=== PATIENT | male | born 1960 | race Caucasian/White ===

== ENCOUNTER 2017-09-10 15:46 | Inpatient (IN) | payer OTHER ==
[~2017-09-10] VITALS: Ht 180.3 cm; Wt 106.6 kg
--- NOTE | 2017-09-10 16:11 | ED UPPER/LOWER EXTREMITY COMPL ---
History of Present Illness General Chief Complaint: General Adult Stated Complaint: MEGHAN ROME FOR DVT Vital Signs & Intake/Output Vital Signs & Intake/Output Vital Signs Date Time Temp Pulse Resp B/P B/P Pulse O2 O2 Flow FiO2 Mean Ox Delivery Rate 09/10 1559 97.8 91 15 125/79 96 Room Air Room Air Allergies Coded Allergies: No Known Allergies (09/10/17) Triage Note: PT SENT TO ED BY DR. ROME (GI) FOR ?DIVERTICULITIS. PT HAS L SIDED ABD PAIN THAT RADIATES INTO BACK. DENIES FEVERS, CHILLS, NAUSEA, VOMITING OR DIARRHEA. HAS BEEN ON PO ANTIBIOTICS BUT HASN'T FEELING BETTER. Past History Travel History Traveled to [place] past 21 day No Medical History Cardiovascular: hypertension, hyperlipidemia Gastrointestinal: GERD Psychiatric: anxiety Psychosocial History What is your primary language Welsh Tobacco Use: Never used ETOH Use: occasional use Illicit Drug Use: denies illicit drug use Departure Departure Condition: Stable Referrals: Chambers Jacob MA (PCP/Family) Departure Forms: Customer Survey General Discharge Information
--- NOTE | 2017-09-10 16:24 | ED GI/GU/ABDOMINAL COMPLAINT ---
History of Present Illness General Chief Complaint: General Adult Stated Complaint: MEGHAN GODOY FOR DVT Source: patient Exam Limitations: no limitations Allergies Coded Allergies: No Known Allergies (09/10/17) Triage Note: PT SENT TO ED BY DR. GODOY (GI) FOR ?DIVERTICULITIS. PT HAS L SIDED ABD PAIN THAT RADIATES INTO BACK. DENIES FEVERS, CHILLS, NAUSEA, VOMITING OR DIARRHEA. HAS BEEN ON PO ANTIBIOTICS BUT HASN'T FEELING BETTER. Triage Nurses Notes Reviewed? yes Onset: Gradual Duration: getting worse Quality/Severity: sharpness, severe, stabbing Severity Numbers: 7 Radiation: no radiation HPI: Patient is a 56-year-old male with a past medical history of hypertension, GERD, anxiety and diverticulitis with a remote history of surgical resection who presents to emergency room with concerns of left lower quadrant abdominal pain where he called his condominium property manager Dr. Godoy on September 08 he was prescribed ciprofloxacin and Flagyl were patient has been compliant with medications however presents to emergency room with concerns of worsening localized left abdominal pain. Patient's last bowel movement was within last 24 hours no blood no melena noted, can tolerate by mouth with no change in symptoms that denies any fever or chest pain shortness of breath arm pain jaw pain (Emile Alexadnra) Vital Signs & Intake/Output Vital Signs & Intake/Output Vital Signs Date Time Temp Pulse Resp B/P B/P Pulse O2 O2 Flow FiO2 Mean Ox Delivery Rate 09/10 1911 97.9 79 18 143/87 97 Room Air 09/10 1756 97.2 82 18 148/70 97 Room Air 09/10 1559 97.8 91 15 125/79 96 Room Air Room Air (Niharika MA,Dylon Ibarra) Past History Travel History Traveled to [place] past 21 day No Medical History Any Pertinent Medical History? see below for history Cardiovascular: hypertension, hyperlipidemia Gastrointestinal: GERD Psychiatric: anxiety Surgical History Surgical History: colon resection Psychosocial History What is your primary language Egyptian Tobacco Use: Never used ETOH Use: occasional use Illicit Drug Use: denies illicit drug use Family History Hx Contributory? No (Emile Alexandra) Review of Systems Review of Systems Constitutional: Reports: no symptoms. EENTM: Reports: no symptoms. Respiratory: Reports: no symptoms. Cardiovascular: Reports: no symptoms. GI: Reports: see HPI, abdominal pain. Genitourinary: Reports: no symptoms. Musculoskeletal: Reports: no symptoms. Skin: Reports: no symptoms. Neurological/Psychological: Reports: no symptoms. Hematologic/Endocrine: Reports: no symptoms. Immunologic/Allergic: Reports: no symptoms. All Other Systems: Reviewed and Negative (Emile Alexandra) Physical Exam Physical Exam General Appearance: no apparent distress, comfortable Head: atraumatic Eyes: Bilateral: normal appearance. Ears, Nose, Throat, Mouth: moist mucous membrane Neck: normal inspection Respiratory: normal breath sounds, chest non-tender Cardiovascular: regular rate/rhythm Gastrointestinal: normal bowel sounds, soft, LEFT QUADRANT ABDOMINAL PAIN NO REBOUND TENDERNESS NO PERITONEAL PAIN Extremities: normal range of motion Core Measures ACS in differential dx? No Sepsis Present: No Sepsis Focused Exam Completed? No (Emile Alexandra) Progress Differential Diagnosis: AAA, AMI, appendicitis, biliary colic, bowel obstruction , colon cancer, cholecystitis, diverticulitis, esophageal varices, gastritis, hepatitis, hernia, hemorrhoids, ischemic bowel, inflamm bowel dis, orchitis, pancreatitis, prostatitis, peptic ulcer, PUD/GERD, perforated viscous, pyelonephritis, SBO, testicular torsion, ureterolithiasis, urinary retention, urethritis, UTI/pyelo Diagnostic Imaging: Viewed by Me: CT Scan. Radiology Impression: acute abnormality Initial ED EKG: normal intervals, normal p-waves, 81 BPM,NSR Comments: PATIENT: JIMMY MAHARAJ PRESENT AGE: 56 PATIENT ACCOUNT NO: [id number] : 58 LOCATION: [facility] ORDERING PHYSICIAN: Emile CHACON SERVICE DATE: 09/10/17 EXAM TYPE: CAT - CT ABD & PELVIS W IV CONTRAST EXAMINATION: CT ABDOMEN AND PELVIS WITH CONTRAST CLINICAL INFORMATION: Left lower quadrant pain. COMPARISON: None TECHNIQUE: Multidetector volumetric imaging was performed of the abdomen and pelvis following IV administration of 95 mL of Optiray 320 intravenous contrast. Sagittal and coronal reformatted images were obtained on the technologist's workstation. DLP: 753.02 mGy-cm FINDINGS: LUNG BASES: The visualized lung bases are unremarkable. LIVER, GALLBLADDER, AND BILIARY TREE: Diffuse low attenuation of liver parenchyma due to fatty change. There is a faint 7 mm hypodensity segment 8 right lobe of liver, axial image 128 (3). This is indeterminate on postcontrast study. No intrahepatic bile duct dilatation. The gallbladder is unremarkable with no evidence of radiopaque gallstones, gallbladder wall thickening, or obvious pericholecystic inflammatory changes. PANCREAS: Unremarkable. SPLEEN: Unremarkable. ADRENAL GLANDS: Unremarkable. KIDNEYS AND URETERS: Numerous parapelvic cysts in the left kidney. Small parapelvic cyst lower pole right kidney. There is no hydronephrosis. No renal or ureteral calculus. BLADDER: Unremarkable. GASTROINTESTINAL TRACT: There are numerous diverticula of left colon and descending colon. There are a few scattered diverticula right colon. At the proximal descending colon there is diverticulitis. There is focal inflammation in the pericolonic fat and asymmetric bowel wall thickening due to the diverticulitis. No perforation or abscess. No bowel obstruction. No free air. The appendix is normal. The small bowel loops are normal. Moderate to large-volume of stool throughout the colon. ABDOMINAL WALL: No significant hernia is appreciated. LYMPH NODES: Normal. VASCULAR: Unremarkable. PELVIC VISCERA: Prostate measures 5 cm transverse. OSSEOUS STRUCTURES: Degenerative spondylosis of spine with multilevel endplate spurring and facet joint arthrosis. IMPRESSION: 1. Diverticulitis of the descending colon. 2. Diffuse fatty change of liver. Indeterminate small hypodensity in the right lobe of liver. Statistically this is likely incidental finding. DICTATED BY: Leandro Garcia MD DATE/TIME DICTATED:09/10/171803 INSULATION MACHINE OPERATOR:DINO DATE/TIME TRANSCRIBED:09/10/171803 (Emile Alexandra) Plan of Care: Orders Procedure Date/time Status Clear Liquid Diet 09/11 B Active URINALYSIS 09/10 190 Active Misc Message 09/10 1854 Active ED Holding Orders 09/10 185 Active Admit to inpatient 09/10 185 Active Vital Signs 09/10 185 Active Code Status 09/10 185 Active Patient Data 09/10 1851 Active EKG 09/10 1834 Active Add-on Test (ER Only) 09/10 1638 Active LIPASE 09/10 1624 Complete LACTIC ACID 09/10 1624 Complete COMPREHENSIVE METABOLIC PANEL 09/10 1624 Complete CBC WITHOUT DIFFERENTIAL 09/10 1624 Complete AMYLASE 09/10 1624 Complete Current Medications Sig/Kenia Start time Last Medication Dose Stop Time Status Admin Metronidazole 500 MG ONCE ONE 09/10 1845 AC 09/10 (Flagyl) 09/10 1944 1908 N/A 1 UNIT (No Carrier) Sodium Chloride 1,000 ML ONCE ONE 09/10 1845 AC 09/10 (Normal Saline 0.9%) 09/11 0124 1908 Laboratory Tests 09/10/17 1635: Anion Gap 14, Estimated GFR > 60, BUN/Creatinine Ratio 18.8, Glucose 83, Lactic Acid 0.8, Calcium 9.2, Total Bilirubin 1.3, AST 27, ALT 44, Alkaline Phosphatase 58, Total Protein 6.7, Albumin 4.3, Globulin 2.4, Albumin/Globulin Ratio 1.8, Amylase 43, Lipase 85, CBC w Diff NO MAN DIFF REQ, RBC 4.64 L, MCV 88.4, MCH 29.7, MCHC 33.6, RDW 13.3, MPV 8.4, Gran % 69.8, Lymphocytes % 19.5 L, Monocytes % 8.1, Eosinophils % 1.9, Basophils % 0.7, Absolute Granulocytes 4.9, Absolute Lymphocytes 1.4, Absolute Monocytes 0.6, Absolute Eosinophils 0.1, Absolute Basophils 0.1 Patient on initial presentation was resting currently at bedside, patient was offered pain medication and only requested nonnarcotics due to patient having the possibility of driving home, patient was reevaluated on multiple occasions nontoxic-appearing afebrile CT scan was resulted showing uncomplicated diverticulitis with no perforation or abscess concerns I will discuss patient with gastroenterology discussed patient with Dr. Godoy who advised patient to be admitted for bowel rest and IV antibiotics due to failed outpatient treatment for no improvement of his symptoms with outpatient by mouth antibiotics, patient agrees with admission disposition plan, (Emile Alexandra) (Niharika MA,Dylon Ibarra) Departure Departure Disposition: STILL A PATIENT Condition: Stable Clinical Impression Primary Impression: Diverticulitis Referrals: Jacob Chambers MD (PCP/Family) Departure Forms: Customer Survey General Discharge Information Admission Note Spoke With: Geraldo Thomason MD Documentation of Exam: Documentation of any treatments & extenuating circumstances including Concerns Regarding Discharge (functional status, medication knowledge or non-compliance, living conditions, etc.) that warrant an admission rather than observation: [ Patient requires IV fluids and bowel rest gastroenterology consultation IV antibiotics and pain management patient has failed outpatient treatment with by mouth antibiotics] (Emile Alexandra) PA/CASHIER CLERK Co-Sign Statement Statement: ED Attending supervision documentation- [] I saw and evaluated the patient. I have also reviewed all the pertinent lab results and diagnostic results. I agree with the findings and the plan of care as documented in the PA's/CASHIER CLERK's documentation. [X] I have reviewed the ED Record and agree with the PA's/CASHIER CLERK's documentation. [] Additions or exceptions (if any) to the PAs/CASHIER CLERK's note and plan are summarized below: [] (Niharika MA,Dylon Ibarra)
[2017-09-10 16:49] LABS: ABSOLUTE BASOPHIL COUNT 0.1 /CUMM (0.0-0.2); ABSOLUTE EOSINOPHIL COUNT 0.1 /CUMM (0.0-0.7); ABSOLUTE GRANULOCYTE CT 4.9 /CUMM (1.4-6.5); ABSOLUTE LYMPH COUNT 1.4 /CUMM (1.2-3.4); ABSOLUTE MONOCYTE COUNT 0.6 /CUMM (0.10-0.60); BASOPHIL % 0.7 % (0.0-2.0); EOSINOPHIL % 1.9 % (0-5); GRANULOCYTE % 69.8 % (42.2-75.2); MEAN CORPUSCULAR HGB 29.7 PG (27.0-31.0); MEAN CORPUSCULAR HGB CONC 33.6 G/DL (33.0-37.0); MEAN CORPUSCULAR VOLUME 88.4 FL (80.0-94.0); MEAN PLATELET VOLUME 8.4 FL (7.4-10.4); PLATELET COUNT 192 /CUMM (130-400); RBC DISTRIBUTION WIDTH 13.3 % (11.5-14.5); RED BLOOD CELL CT 4.64 /CUMM (4.70-6.10)
--- NOTE | 2017-09-10 18:14 | CT SCAN REPORT ---
EXAMINATION: CT ABDOMEN AND PELVIS WITH CONTRAST CLINICAL INFORMATION: Left lower quadrant pain. COMPARISON: None TECHNIQUE: Multidetector volumetric imaging was performed of the abdomen and pelvis following IV administration of 95 mL of Optiray 320 intravenous contrast. Sagittal and coronal reformatted images were obtained on the technologist's workstation. DLP: 753.02 mGy-cm FINDINGS: LUNG BASES: The visualized lung bases are unremarkable. LIVER, GALLBLADDER, AND BILIARY TREE: Diffuse low attenuation of liver parenchyma due to fatty change. There is a faint 7 mm hypodensity segment 8 right lobe of liver, axial image 128 (3). This is indeterminate on postcontrast study. No intrahepatic bile duct dilatation. The gallbladder is unremarkable with no evidence of radiopaque gallstones, gallbladder wall thickening, or obvious pericholecystic inflammatory changes. PANCREAS: Unremarkable. SPLEEN: Unremarkable. ADRENAL GLANDS: Unremarkable. KIDNEYS AND URETERS: Numerous parapelvic cysts in the left kidney. Small parapelvic cyst lower pole right kidney. There is no hydronephrosis. No renal or ureteral calculus. BLADDER: Unremarkable. GASTROINTESTINAL TRACT: There are numerous diverticula of left colon and descending colon. There are a few scattered diverticula right colon. At the proximal descending colon there is diverticulitis. There is focal inflammation in the pericolonic fat and asymmetric bowel wall thickening due to the diverticulitis. No perforation or abscess. No bowel obstruction. No free air. The appendix is normal. The small bowel loops are normal. Moderate to large-volume of stool throughout the colon. ABDOMINAL WALL: No significant hernia is appreciated. LYMPH NODES: Normal. VASCULAR: Unremarkable. PELVIC VISCERA: Prostate measures 5 cm transverse. OSSEOUS STRUCTURES: Degenerative spondylosis of spine with multilevel endplate spurring and facet joint arthrosis. IMPRESSION: 1. Diverticulitis of the descending colon. 2. Diffuse fatty change of liver. Indeterminate small hypodensity in the right lobe of liver. Statistically this is likely incidental finding.
--- NOTE | 2017-09-10 19:11 | History & Physical ---
Dinah MA,Asia 09/10/17 1910: General Information and HPI MD Statement: I have seen and personally examined JIMMY MAHARAJ and documented this H&P. The patient is a 56 year old M who presented with a patient stated chief complaint of [abdominal pain]. Source of Information: patient Exam Limitations: no limitations History of Present Illness: Patient is 56-year-old male with past medical history significant for hypertension, GERD, anxiety, esophageal spasms, diverticulitis requiring surgical resection 20 years ago presented to [place] with left lower quadrant pain that started this Thursday (09/07/2017). He reports pain is constant for the last 3 days, now on & off - not associated with any nausea vomiting or diarrhea, fever. He called Dr. Godoy office who prescribed Cipro and Flagyl on thursday as outpatient despite which pain progressively got worse. His last bowel movement was this morning which was soft without any blood in it. He takes Metamucil daily and has 3 bowel movements per day Patient did have 2 episodes of diverticular disease last year. One episode required admission to hospital for special care and the other one resolved at home with oral antibiotics. His last screening colonoscopy was in October 2016 - significant for diverticulosis without any neoplasia. Past medical history Hypertension, GERD, anxiety Allergies No known drug allergies Surgeries Knee replacement, carpal tunnel syndrome, rotator cuff tear, noted is a current surgical resection 20 years ago, cardiac catheterization 10 years ago ( nonocclusive disease) Follows Dr. Godoy Allergies/Medications Allergies: Coded Allergies: No Known Allergies (09/10/17) Home Med list Aspirin (Ecotrin*) 81 MG TABLET.DR 1 TAB PO DAILY heart health (Reported) Ciprofloxacin HCl 750 MG TABLET 1 TAB PO BID DIVERTICULITIS Duloxetine HCl 30 MG CAPSULE.DR 1 CAP PO DAILY anxiety (Reported) Losartan (Cozaar) 100 MG TABLET 1 TAB PO DAILY high bloodpressure (Reported) Metronidazole (Flagyl) 500 MG TABLET 1 TAB PO Q6H DIVERTICULITIS Pantoprazole Sodium 40 MG TABLET.DR 1 TAB PO DAILY GERD (Reported) Simvastatin (Zocor*) 20 MG TABLET 1 TAB PO QPM cholesterol (Reported) Compliance With Home Meds: GOOD Past History Travel History Traveled to [place] past 21 day No Medical History Neurological: NONE EENT: NONE Cardiovascular: hypertension, hyperlipidemia Gastrointestinal: GERD Psychiatric: anxiety Surgical History Surgical History: colon resection, knee replacement, carpal tunnel syndrome, rotator cuff tear Past Family/Social History Psychosocial History Where do you live? Home Services at Home: None Smoking Status: Never Smoked ETOH Use: occasional use Illicit Drug Use: denies illicit drug use Functional Ability ADLs Independent: dressing, eating, toileting, bathing. Ambulation: independent IADLs Independent: shopping, housework, finances, food prep, telephone, transportation , medication admin. Review of Systems Review of Systems Constitutional: Reports: see HPI. Comments ROS negative except above Exam & Diagnostic Data Last 24 Hrs of Vital Signs/I&O Vital Signs Date Time Temp Pulse Resp B/P B/P Pulse O2 O2 Flow FiO2 Mean Ox Delivery Rate 09/10 1756 97.2 82 18 148/70 97 Room Air 09/10 1559 97.8 91 15 125/79 96 Room Air Room Air Intake & Output 09/10 1600 09/10 0800 09/10 0000 Intake Total Output Total Balance Patient 106.594 kg Weight Weight Reported by Patient Measurement Method Physical Exam General Appearance Alert, Oriented X3, Cooperative, No Acute Distress Skin No Rashes, No Breakdown Skin Temp/Moisture Exam: Warm/Dry HEENT Atraumatic, PERRLA, EOMI Neck Supple, No JVD Cardiovascular Normal S1, Normal S2, ?systolic murmur Lungs Clear to Auscultation, Normal Air Movement Abdomen Normal Bowel Sounds, tenderness in the left lower quadrant without any guarding., no palpable masses Neurological Normal Gait, Normal Speech, Strength at 5/5 X4 Ext, Normal Tone Extremities No Clubbing, No Cyanosis, No Edema Vascular Normal Pulses, Pulses Symmetrical Body Front and Back (Adult) 1) Pain Last 24 Hrs of Labs/Amrik: Laboratory Tests 09/10/17 1924: Lactic Acid Cancelled 09/10/17 1635: Anion Gap 14, Estimated GFR > 60, BUN/Creatinine Ratio 18.8, Glucose 83, Lactic Acid 0.8, Calcium 9.2, Total Bilirubin 1.3, AST 27, ALT 44, Alkaline Phosphatase 58, Total Protein 6.7, Albumin 4.3, Globulin 2.4, Albumin/Globulin Ratio 1.8, Amylase 43, Lipase 85, CBC w Diff NO MAN DIFF REQ, RBC 4.64 L, MCV 88.4, MCH 29.7, MCHC 33.6, RDW 13.3, MPV 8.4, Gran % 69.8, Lymphocytes % 19.5 L, Monocytes % 8.1, Eosinophils % 1.9, Basophils % 0.7, Absolute Granulocytes 4.9, Absolute Lymphocytes 1.4, Absolute Monocytes 0.6, Absolute Eosinophils 0.1, Absolute Basophils 0.1 Assessment/Plan Assessment: Patient is a 56-year-old male with significant history of diverticulitis requiring surgical resection 20 years ago followed by 2 episodes of diverticulitis last year presented with another episode of left lower quadrant pain started 3 days ago. He was started on Cipro and Flagyl as outpatient by Dr. Godoy despite which pain progressed requiring prompt referral to ER for further evaluation. He denies any nausea, vomiting, diarrhea, fever and had normal bowel movements. Vital signs at admission afebrile, heart rate 91, blood pressure 120/79 mmHg, on room air. Labs are unremarkable with normal white count and normal H&H 13/41, pending UA. Imaging studies CT abdomen and pelvis is significant for numerous diverticula in the left colon and descending colon with scattered air decline the right colon with diverticulitis of the proximal descending colon. It is also notable for focal inflammation in the pericolonic fat region and asymmetric bowel wall thickening. No evident perforation/free air. Screening Colonoscopy October 2016 is significant for diverticulosis without any evident polyps Problem list 1. Recurrent uncomplicated diverticulitis with significant diverticulosis 2. Hypertension 3. Hyperlipidemia 4. GERD 5. Anxiety Recurrent Uncomplicated diverticulitis Patient did have 2 episodes of diverticulitis last year. His pain progressed despite starting on oral antibiotics as outpatient. For now we will keep the patient nothing by mouth starting IV Cipro and IV Flagyl to cover gram negatives and anaerobes. IV fluids. Pain control with Tylenol, morphine. We will inform Dr. Godoy. Hypertension Continue home medication losartan 100 mg daily and baby aspirin Hyperlipidemia Continue simvastatin 20 mg daily GERD Continue pantoprazole 40 mg daily Anxiety Continue duloxetine 30 mg daily DVT prophylaxis Subcutaneous Lovenox CODE STATUS Full code As Ranked By This Provider Problem List: 1. Diverticulitis Core Measures/Misc (04/26) Acute Coronary Syndrome ACS Diagnosis: No Congestive Heart Failure Congestive Heart Failure Diagnosis No Cerebrovascular Accident CVA/TIA Diagnosis: No VTE (View Protocol) VTE Risk Factors Acute Medical Illness No Mechanical VTE Prophylaxis d/t N/A MechProphylax Ordered No VTE Pharm Prophylaxis d/t NA PharmProphylax ordered Sepsis (View protocol) Sepsis Present: No Resident Review Statement Resident Statement: examined this patient Other Findings: as above Paddy,Aarteramsey 09/11/17 0355: Attending MD Review Statement Attending Statement Attending MD Statement: examined this patient, discuss w/resident/PA/TOUCH UP EDGER, agreed w/resident/PA/TOUCH UP EDGER, reviewed EMR data (avail), reviewed images, amended to note Attending Assessment/Plan: CC: Sent by lamp shade joiner for diverticulitis PMH: HTN, ? CAD (30% block, no PCI), recurrent diverticulitis, S/P bowel resection approximately 20 years back Patient came to ER for persistent left-sided abdominal pain, sharp, 10/10, nonradiating, started 3 days back and progressively worsening. Denies any associated fever or chills. Patient was empirically started on antibiotics 3 days back(metronidazole and Cipro), patient did not notice any improvement in pain so he came to ER. Otherwise complete ROS unremarkable. Vitals: Afebrile, pulse 91, RR 15, blood pressure 125/79, saturating 96% on room air On exam: A O 3, cooperative, no acute distress, neck supple, JVD normal, no lymphadenopathy, mucosa moist, no focal neurological deficit, no dependent edema , no obvious skin rashes or inflammation CVS: S1-S2, RRR. RS: Clear to auscultate bilaterally. Abdomen: Soft, tenderness left lower quadrant, no guarding or rigidity, ND, bowel sounds present. Labs: WBC 7.0, hemoglobin 13.8, hematocrit 41.0, platelets 192, neutrophils 69%, BMP, LFT unremarkable lipase 85 CT abdomen and pelvis with IV contrast 1. Diverticulitis of the descending colon. 2. Diffuse fatty change of liver. Indeterminate small hypodensity in the right lobe of liver. Statistically this is likely incidental finding. Assessment and plan 56-year-old male with a history of recurrent diverticulitis, requiring resection of small portion of bowel and 20 years back for complication for diverticulitis, and lipids are so diverticulitis during last year, presented to ER for left lower quadrant pain similar to his diverticulitis pain since last 3 days, progressively worsening. He was started on outpatient antibiotics, was not getting any better. He has tenderness left lower quadrant but no guarding or rigidity. CT scan does not show any development of abscess. Given his recurrent diverticulitis episodes and failed outpatient treatment he would benefit admission for IV antibiotics and bowel rest. Keyboard Specialist was informed from ER + Acute uncomplicated diverticulitis failed outpatient treatment + History of HTN - Admit to general medicine - Continue gentle hydration - Nothing by mouth except medications - Adequate pain control - Continue IV metronidazole and ceftriaxone - Trend one more level of lactate - Continue home medications - DVT prophylaxis - Inform lamp shade joiner about patient being in hospital
[2017-09-10] MEDS ORDERED: COZAAR100 M1 PO (20:29)
[2017-09-10] MEDS ORDERED: DULOXETINE HCL30 MG PO (20:30)
[2017-09-10] MEDS ORDERED: ASPIRIN EC81 M1 PO (20:30)
[2017-09-10] MEDS ORDERED: ZOCOR20 M1 PO (20:30)
[2017-09-10] MEDS ORDERED: PANTOPRAZOLE SO40 M1 PO (20:30)
[2017-09-10 21:28] VITALS: BP 140/80
--- NOTE | 2017-09-11 03:56 | Admission Certification ---
Admission Certification Certification Statement - As attending physician, I certify that at the time of - admission, based on clinical presentation, severity of - symptoms, need for further diagnostic testing and - therapeutic interventions, and risk of adverse outcomes - without in-hospital treatment, in my clinical assessment, - this patient requires an acute hospital stay for a minimum - of two nights or longer. I have also considered psychsocial - factors such as support system, advanced age, financial - issues, cognitive issues, and failed out-patient treatments, - past re-admission history, safety of patient, and lack of - compliance as applicable. Specific rationale supporting this admission is: Acute diverticulitis failed outpatient treatment
[2017-09-11 05:55] VITALS: BP 140/80
[2017-09-11 09:14] LABS: ABSOLUTE BASOPHIL COUNT 0 /CUMM (0.0-0.2); ABSOLUTE EOSINOPHIL COUNT 0.2 /CUMM (0.0-0.7); ABSOLUTE GRANULOCYTE CT 2.6 /CUMM (1.4-6.5); ABSOLUTE MONOCYTE COUNT 0.4 /CUMM (0.10-0.60); BASOPHIL % 0.4 % (0.0-2.0); EOSINOPHIL % 4.7 % (0-5); GRANULOCYTE % 62.5 % (42.2-75.2); HEMATOCRIT 38.9 % (42-52); MEAN CORPUSCULAR HGB 30.1 PG (27.0-31.0); MEAN CORPUSCULAR HGB CONC 34.3 G/DL (33.0-37.0); MEAN CORPUSCULAR VOLUME 87.7 FL (80.0-94.0); MEAN PLATELET VOLUME 9.4 FL (7.4-10.4); PLATELET COUNT 156 /CUMM (130-400); RBC DISTRIBUTION WIDTH 13.2 % (11.5-14.5); RED BLOOD CELL CT 4.43 /CUMM (4.70-6.10); WHITE BLOOD CELL COUNT 4.1 /CUMM (4.8-10.8)
--- NOTE | 2017-09-11 10:27 | PN- Housestaff ---
Lorri MA,Katy 09/11/17 1027: Subjective Follow-up For: diverticulitis Subjective: patient still has left lower ab pain. no blood in stools, no diarrhea or constipation. no fever or chills. no chest pain or sob. Review of Systems Constitutional: Reports: no symptoms. Cardiovascular: Reports: no symptoms. Respiratory: Reports: no symptoms. Gastrointestinal: Reports: abdominal pain. Genitourinary: Reports: no symptoms. Musculoskeletal: Reports: no symptoms. Neurological/Psychological: Reports: no symptoms. Objective Last 24 Hrs of Vital Signs/I&O Vital Signs Date Time Temp Pulse Resp B/P B/P Pulse O2 O2 Flow FiO2 Mean Ox Delivery Rate 09/11 1405 97.9 94 20 140/90 93 Room Air 09/11 0555 98.2 98 20 140/80 94 09/10 2128 98.0 87 18 140/80 96 Room Air 09/10 2015 97.1 80 18 124/68 94 Room Air 09/10 1911 97.9 79 18 143/87 97 Room Air Intake & Output 09/11 1600 09/11 0800 09/11 0000 Intake Total 750 600 415 Output Total 350 Balance 400 600 415 Intake, IV 400 600 415 Intake, Oral 350 0 Output, Urine 350 Patient 235 lb Weight Weight Reported by Patient Measurement Method Physical Exam General Appearance: Alert, Oriented X3, Cooperative, No Acute Distress Cardiovascular: Regular Rate, Normal S1, Normal S2, No Murmurs Lungs: Clear to Auscultation, Normal Air Movement Abdomen: Normal Bowel Sounds, Soft, No Hepatospenomegaly, No Masses, left side tenderness Neurological: Normal Speech Current Medications: Current Medications Sig/Kenia Start time Last Medication Dose Route Stop Time Status Admin Acetaminophen 650 MG Q6P PRN 09/10 2100 AC PO Aspirin Buffered 81 MG DAILY 09/11 1000 AC 09/11 PO 0916 Atorvastatin Calcium 10 MG 1700 09/11 1700 AC 09/11 PO 1813 Ceftriaxone Sodium 1,000 MG Q24H 09/11 1900 AC 09/11 IV 1818 Ceftriaxone Sodium 0 .STK-MED ONE 09/10 185 DC .ROUTE Ceftriaxone Sodium 1,000 MG ONCE ONE 09/10 1845 DC 09/10 IV 09/10 1846 1908 Duloxetine HCl 30 MG DAILY 09/11 1000 AC 09/11 PO 0916 Enoxaparin Sodium 40 MG DAILY 09/10 2026 AC SC Losartan Potassium 100 MG DAILY 09/11 1000 AC 09/11 PO 0922 Metronidazole 500 MG IQ8 09/11 0800 AC 09/11 N/A 1 UNIT IV 1813 Metronidazole 500 MG ONCE ONE 09/10 184 DC 09/10 N/A 1 UNIT IV 09/10 194 190 Morphine Sulfate 2 MG Q4P PRN 09/10 2100 AC 09/11 IV 0620 Morphine Sulfate 0 .STK-MED ONE 09/10 1854 DC .ROUTE Morphine Sulfate 4 MG ONCE ONE 09/10 184 DC 09/10 IV 09/10 184 190 Omeprazole 40 MG DAILY AC 09/11 0700 AC 09/11 PO 0620 Sodium Chloride 1,000 ML Q13H 09/10 2044 DC 09/10 IV 2221 Sodium Chloride 1,000 ML ONCE ONE 09/10 1844 DC 09/10 IV 09/11 0124 190 Last 24 Hrs of Lab/Amrik Results Last 24 Hrs of Labs/Mics: Laboratory Tests 09/11/17 1131: Lactic Acid 1.1 09/11/17 0735: Anion Gap 13, Estimated GFR > 60, BUN/Creatinine Ratio 20.0, CBC w Diff NO MAN DIFF REQ, RBC 4.43 L, MCV 87.7, MCH 30.1, MCHC 34.3, RDW 13.2, MPV 9.4, Gran % 62.5, Lymphocytes % 23.6, Monocytes % 8.8, Eosinophils % 4.7, Basophils % 0.4, Absolute Granulocytes 2.6, Absolute Lymphocytes 1.0 L, Absolute Monocytes 0.4, Absolute Eosinophils 0.2, Absolute Basophils 0 09/10/171923: Lactic Acid Cancelled 09/10/171907: Urine Color Cancelled, Urine Clarity Cancelled, Urine pH Cancelled, Ur Specific Sunset Cancelled, Urine Protein Cancelled, Urine Ketones Cancelled, Urine Nitrite Cancelled, Urine Bilirubin Cancelled, Urine Urobilinogen Cancelled, Ur Leukocyte Esterase Cancelled, Ur Microscopic Cancelled, Urine Hemoglobin Cancelled, Urine Glucose Cancelled Assessment/Plan Assessment: Patient is a 56-year-old male with significant history of diverticulitis requiring surgical resection 20 years ago followed by 2 episodes of diverticulitis last year presented with another episode of left lower quadrant pain started 3 days ago. He was started on Cipro and Flagyl as outpatient by Dr. Godoy despite which pain progressed requiring prompt referral to ER for further evaluation. He denies any nausea, vomiting, diarrhea, fever and had normal bowel movements. Vital signs at admission afebrile, heart rate 91, blood pressure 120/79 mmHg, on room air. Labs are unremarkable with normal white count and normal H&H 13/41, pending UA. Imaging studies CT abdomen and pelvis is significant for numerous diverticula in the left colon and descending colon with scattered air decline the right colon with diverticulitis of the proximal descending colon. It is also notable for focal inflammation in the pericolonic fat region and asymmetric bowel wall thickening. No evident perforation/free air. Screening Colonoscopy October 2016 is significant for diverticulosis without any evident polyps Problem list 1. Recurrent uncomplicated diverticulitis with significant diverticulosis 2. Hypertension 3. Hyperlipidemia 4. GERD 5. Anxiety Recurrent Uncomplicated diverticulitis Patient did have 2 episodes of diverticulitis last year. His pain progressed despite starting on oral antibiotics as outpatient. -For now we will keep the patient nothing by mouth starting IV Cipro and IV Flagyl to cover gram negatives and anaerobes. -IV fluids held as he is not NPO anymore -Pain control with Tylenol, morphine. -Notified Dr. Godoy office that patient is here, asked if consult appropriate with plan for Dr. Godoy to call back. We did not receive a call back as of 5pm. Pt will follow up with him. -WBC WNL but antibiotics given prior to admission could have decreased a previously high white count. -Advanced patient to clears. Hypertension Continue home medication losartan 100 mg daily and baby aspirin Hyperlipidemia Continue simvastatin 20 mg daily GERD Continue pantoprazole 40 mg daily Anxiety Continue duloxetine 30 mg daily DVT prophylaxis Subcutaneous Lovenox CODE STATUS Full code Problem List: 1. Diverticulitis Pain Ratin Pain Location: left abdomen Pain Goal: Pain 4 or less Pain Plan: morphine 2mg q4prn Tomorrow's Labs & Rationales: none Maureen Rodarte MD 09/11/17 1451: Attending MD Review Statement Attending Statement Attending MD Statement: examined this patient, discuss w/resident/PA/POWER MANAGER, agreed w/resident/PA/POWER MANAGER, reviewed EMR data (avail), discussed with nursing, discussed with case mgmt Attending Assessment/Plan: 56-year-old male past medical history of hypertension, coronary artery disease and remote history of diverticulitis. He is here with acute diverticulitis having failed outpatient by mouth antibiotics. We have him nothing by mouth, on IV fluids and IV ceftriaxone and Flagyl. He is hungry and very eager to eat. His CT was unrevealing for an abscess and his abdomen is soft with some left lower quadrant tenderness. We'll start him on clears. If he tolerates will advance to full liquids the night and probably regular for breakfast. Will follow closely.
[2017-09-11 14:05] VITALS: BP 140/90
[2017-09-11] MEDS ORDERED: FLAGYL500 MG PO (15:52)
[2017-09-11] MEDS ORDERED: CIPROFLOXACIN750 M1 PO (15:52)
--- NOTE | 2017-09-11 15:54 | Patient Discharge Instructions ---
Discharge Instructions General Discharge Information You were seen/treated for: DIVERTICULITIS Special Instructions: 1. PLEASE FOLLOW WITH PCP 2. PLEASE COMPLETE THE FULL ANTIBIOTIC COURSE OF CIPROFLOXACINE AND FLAGYL DR. JUSTICE PRESCRIBED. 3. PLEASE FOLLOW WITH DR. ROME KEY ACCOUNT REPRESENTATIVE IN ONE WEEK Diet Continue normal diet: Yes ( TOLERATED) Activity Full Activity/No Limits: Yes ( TOLERATED) Acute Coronary Syndrome Inclusion Criteria At DC or during hospital stay patient has or had the following: ACS DIAGNOSIS No Discharge Core Measures Meds if any: Prescribed or Continued at Discharge Meds if any: NOT Prescribed or Continued at Discharge Congestive Heart Failure Inclusion Criteria At DC or during hospital stay patient has or had the following: CHF DIAGNOSIS No Discharge Core Measures Meds if any: Prescribed or Continued at Discharge Meds if any: NOT Prescribed or Continued at Discharge Cerebrovascular accident Inclusion Criteria At DC or during hospital stay patient has or had the following: CVA/TIA Diagnosis No Discharge Core Measures Meds if any: Prescribed or Continued at Discharge Meds if any: NOT Prescribed or Continued at Discharge Venous thromboembolism Inclusion Criteria VTE Diagnosis No VTE Type NONE VTE Confirmed by (Test) NONE Discharge Core Measures - Per Current guidelines, there needs to be overlap - treatment for the first 5 days of Warfarin therapy. - If discharged on Warfarin prior to 5 days of - overlap therapy, the patient will need to be - assessed for post discharge needs including - *Post discharge parental anticoagulation - *Warfarin and/or parental anticoagulation education - *Follow up date to check INR post discharge At least 5 days overlap therapy as Inpatient No Meds if any: Prescribed or Continued at Discharge Note: Overlap Therapy is Warfarin and Anticoagulant Meds if any: NOT Prescribed or Continued at Discharge
--- NOTE | 2017-09-11 19:05 | Discharge Summary ---
Visit Information Visit Dates Admission Date: 09/10/17 Discharge Date: 09/12/17 Hospital Course Course Attending Physician: Cayden MA,Maureen Barroso Primary Care Physician: Jacob Chambers MD Hospital Course: Patient is 56-year-old male with past medical history significant for hypertension, GERD, anxiety, esophageal spasms, diverticulitis requiring surgical resection 20 years ago presented to [facility] with left lower quadrant pain that started 09/07/2017. He reports pain is constant for the last 3 days, now during presentation to us, is on & off - not associated with any nausea vomiting or diarrhea, fever. He called Dr. Jaylon Godoy office who prescribed Cipro and Flagyl as outpatient. Despite this, the pain progressively got worse. His last bowel movement was the morning of presentation and was soft in consistency, not watery, and without any blood in it. He normally takes Metamucil daily and has 3 bowel movements per day. Patient did have 2 episodes of diverticulitis last year. [facility] and the other one resolved at home with oral antibiotics. His last screening colonoscopy was in October 2016 - significant for diverticulosis without any neoplasia. IN THE ED: Vital signs at admission afebrile, heart rate 91, blood pressure 120/79 mmHg, on room air. Labs are unremarkable with normal white count and normal H&H 13/41. Imaging studies CT abdomen and pelvis is significant for numerous diverticula in the left colon and descending colon with scattered air throughout the right colon with diverticulitis of the proximal descending colon. It is also notable for focal inflammation in the pericolonic fat region and asymmetric bowel wall thickening. No evidence of perforation/free air. He received one dose of ceftriaxone and one of flagyl in the ED before he was moved to the floors. The patient is admitted to general medicine floors for evaluation and treatment of the following: Recurrent uncomplicated diverticulitis: Patient did have 2 episodes of diverticulitis last year. He has a history of surgical resection secondary to his diverticulitis 20 years ago. This time, his pain progressed despite starting on oral antibiotics as outpatient. We kept the patient nothing by mouth and started him on IV Ceftriaxone 1 gram daily and IV Flagyl 500 mg q8h to cover gram negatives and anaerobes. He was started on IV fluids normal saline to maintain his perfusion. We started pain control with tylenol, ketorolac and morphine per pain pathway. We placed a call to Dr Jaylon Godoy's office to let him know the patient was in house. The evening of patient's transfer to the floors, he was asking for us to advance his diet to clear liquids, and then to full liquids. Patient tolerated oral intake well so IV fluids were held. Patient never had an increased white count but it is to be noted that antibiotics given prior to admission could have decreased a previously high white count. Patient was transitioned to flagyl 500 TID and cipro 500 bid outpatient to complete a 10 day total course. Patient discharged with instructions to continue to advance diet slowly (introduce coarse vegetables, nuts and seeds, spicy food slowly). He will follow up with his PCP and logistics planner. Hypertension Continue home medication losartan 100 mg daily and baby aspirin Hyperlipidemia Continue simvastatin 20 mg daily in the form of atorvastatin (hospital's forumulary) GERD Continue pantoprazole 40 mg daily Anxiety Continue duloxetine 30 mg daily DVT prophylaxis Subcutaneous Lovenox Allergies: Coded Allergies: No Known Allergies (09/10/17) Disposition Summary Disposition Principal Diagnosis: DIVERTICULITIS Additional Diagnosis: NA Discharge Disposition: home or self care Discharge Instructions General Discharge Information Code Status: Full Code Patient's Diet: regular as tolerated Patient's Activity: as tolerated Follow-Up Instructions/Appts: 1. PLEASE FOLLOW WITH PCP INE ONE WEEK 2. PLEASE COMPLETE THE FULL ANTIBIOTIC COURSE OF CIPROFLOXACINE AND FLAGYL DR. JUSTICE PRESCRIBED. 3. PLEASE FOLLOW WITH DR. GODOY PASTA MAKER IN ONE WEEK Medications at Discharge Discharge Medications: Continue taking these medications: Losartan (Cozaar) 100 MG TABLET 1 Tablet ORAL DAILY Comments: Last Taken:09/12/17 Time:0930 Duloxetine HCl (Duloxetine HCl) [address] Patterson Capsule ORAL DAILY Comments: Last Taken:09/12/17 Time:0930 Simvastatin (Zocor*) 20 MG TABLET 1 Tablet ORAL Every night Comments: not taken while in hospital Aspirin (Ecotrin*) [address] Patterson Tablet ORAL DAILY Comments: Last Taken:09/12 Time:0930 Pantoprazole Sodium (Pantoprazole Sodium) [address] Patterson Tablet ORAL DAILY Comments: Last Taken:09/12/17 Time:0630 Start taking the following new medications: Ciprofloxacin HCl (Ciprofloxacin HCl) 500 MG TABLET 1 Tablet ORAL TWICE DAILY Qty = 18 No Refills Metronidazole (Flagyl) 500 MG TABLET 1 Tablet ORAL THREE TIMES DAILY Qty = 36 No Refills Copies To: Jayne MA,Jaylon Madera; Reyes MA,Jacob Barroso
[2017-09-11 22:20] VITALS: BP 132/70
[2017-09-12 07:46] VITALS: BP 128/68
[2017-09-12] MEDS ORDERED: CIPROFLOXACIN500 M2 PO (09:18)
[2017-09-12] MEDS ORDERED: FLAGYL500 MG PO (09:18)
--- NOTE | 2017-09-12 09:28 | PN- Att Addend ---
Attending Addendum Attending Brief Note Pt seen and examined. He feels well and tolerated breakfast okay. He does have some soreness in his left lower quadrant but he says it's markedly better than before. And in the past 24 hours he's had 2 soft bowel movements. On exam blood pressure is 128/68, pulse is 88, breathing at 16 and afebrile. Awake, alert, oriented, lungs are clear to auscultation, heart is S1-S2 regular, abdomen is soft on deep palpation there is mild left lower quadrant tenderness but no rebound no guarding. No edema He is a 56-year-old male with a past medical history of hypertension, GERD, esophageal spasms and diverticulitis. He's had 2 episodes of diverticulitis last and this is his third episode. He sees Ivan Godoy as an outpatient and was prescribed Cipro and Flagyl which he took since September 08 but when his symptoms were getting worse he got admitted late night. He is responded well to IV antibiotics, CT scan is negative for an abscess and I think he stable to be discharged. He will complete his Cipro and Flagyl course as already prescribed by Dr. Ivan Godoy. He's been seen by the tankroom worker about the diet regarding diverticulitis. I talked to him at length about close follow-up with Dr. Ivan Godoy as he is very concerned about this recurring again.
[2017-09-12 09:37] VITALS: BP 158/88
== END 2017-09-12 10:29 | DRG 392 ==
LOC: ERH 15:46 → 2NA 18:55 → ERHI 18:55 → ENRESERV 20:00 → ENTRNSPT 20:17 → EDTRNSPTSTS 20:27 → 2NA 20:40 → CMPTRNSPT 20:52 → 2NA 09-11 08:10 → ENPENDDIS 09-12 09:29 → 2NA 09-12 10:29
PROVIDERS: Internal Medicine; Physician Assistant
DX: K57.32 Diverticulitis of large intestine without perforation or abscess without bleeding (principal); E78.5 Hyperlipidemia, unspecified; I10 Essential (primary) hypertension; K21.9 Gastro-esophageal reflux disease without esophagitis; F41.9 Anxiety disorder, unspecified; K22.4 Dyskinesia of esophagus
CPT/HCPCS: 2NASP; 36415; 74177; 82436; 93005; 93010; 96365; 96375; J0696; J1650; J1885; J3490